=== PATIENT | male | born 1970 | race Caucasian/White ===

== ENCOUNTER → 2021-06-18 | Outpatient (CLI) | payer OTHER | LOC: HEART CORB 10:30 | DX: I11.0 Hypertensive heart disease with heart failure (principal); I50.9 Heart failure, unspecified; E11.9 Type 2 diabetes mellitus without complications; K74.60 Unspecified cirrhosis of liver; F10.10 Alcohol abuse, uncomplicated | CPT/HCPCS: A9502; J2785 ==